=== PATIENT | female | born 1930 | race Asian ===

== ENCOUNTER 2017-09-12 06:12 | Day surgery (SDC) | payer OTHER ==
[~2017-09-12] VITALS: Ht 149.9 cm; Wt 57.7 kg
[2017-09-12] MEDS ORDERED: SODIUM CHLORIDE 0.9% 1,000 ML IV ONE ×2 (06:38→07:00)
[2017-09-12] MEDS ORDERED: OMEP20 PO (07:39)
[2017-09-12] MEDS ORDERED: VITAD1000 PO (07:39)
[2017-09-12] MEDS ORDERED: PRAV20TA4 PO (07:39)
[2017-09-12] MEDS ORDERED: GABA-529 PO (07:39)
[2017-09-12] MEDS ORDERED: LIPA1CAP18 PO (07:39)
[2017-09-12] MEDS ORDERED: LOSA1TAB37 PO (07:39)
[2017-09-12] MEDS ORDERED: MONT10TA21 PO (07:40)
[2017-09-12] MEDS ORDERED: FentaNYL CITRATE-PF 100 MCG/2 ML VIAL ONE (08:09)
[2017-09-12] MEDS ORDERED: MIDAZOLAM HCL 2 MG/2 ML VIAL ONE (08:09)
[2017-09-12] MEDS ORDERED: MethylPREDNISolone SOD SUCC 125 MG/2 ML VIAL IVP ONE (09:00)
[2017-09-12] MEDS ORDERED: MethylPREDNISolone SOD SUCC 125 MG/2 ML VIAL ONE (09:25)
[2017-09-12] MEDS ORDERED: BENZOCAINE 20% 50 MCG/SPRAY 57 GM ONE (18:05)
[2017-09-12] MEDS ORDERED: LIDOCAINE HCL 2% 30 ML JELLY ONE (18:05)
[2017-09-12] MEDS ORDERED: LIDOCAINE HCL 4% 50 ML SOLUTION ONE (18:05)
[2017-09-12] MEDS ORDERED: ALBUTEROL SULFATE 2.5 MG/0.5 ML NEB SOLUTION NEB ONE (18:05)
[2017-09-12] MEDS ORDERED: OXYGEN THERAPY IH SCH (20:00)
== END 2017-09-12 10:25 | disposition home or self-care (01) ==
LOC: SURGERY 06:12
PROVIDERS: ATTEND Internal Medicine Critical Care Medicine
DX: J38.4 Edema of larynx (principal); B37.0 Candidal stomatitis; I45.10 Unspecified right bundle-branch block; J44.9 Chronic obstructive pulmonary disease, unspecified; K21.9 Gastro-esophageal reflux disease without esophagitis; I10 Essential (primary) hypertension; E11.9 Type 2 diabetes mellitus without complications; Z98.49 Cataract extraction status, unspecified eye; Z98.890 Other specified postprocedural states; Z79.899 Other long term (current) drug therapy
CPT/HCPCS: 31623; 31624; 71045; 87015; 87070; 87205; 87220; 88108; 88312; 93005; J2250; J2930; J3010; J7030